=== PATIENT | male | born 1955 | race Caucasian/White ===

== ENCOUNTER → 2017-01-12 | Outpatient (CLI) | payer BC ==
--- NOTE | 2017-01-12 21:20 | MR ---
EXAMINATION TYPE: MR shoulder RT wo con DATE OF EXAM: 01/12/2017 COMPARISON: NONE HISTORY: Rt shoulder pain x 3 mos, no trauma TECHNIQUE: Multiplanar, multisequence imaging of the right shoulder is performed without contrast. FINDINGS: Rotator Cuff: There is abnormal signal throughout the infraspinatus and supraspinatus tendons compati ble with tendinosis. Partial tear involving the posterior fibers of the insertion of the infraspinatu s tendon seen with no retraction. There is intrasubstance signal near the musculotendinous junction of the supraspinatus tendon as well as involving the anterior fibers suggestive of partial tear. Acromioclavicular Joint: Severe arthropathy of the AC joint with impingement of the rotator cuff. Glenohumeral Joint: Glenohumeral joint is maintained. Inferior glenohumeral ligament is intact. Labrum: The labrum appears grossly intact given limitation of non-arthrogram study. Biceps Tendon: The long head of biceps is in normal location within bicipital groove. There is [place] of the biceps tendon in the intracapsular portion. Bone marrow signal: No focal abnormal marrow signal is appreciated. Other: No additional significant abnormality is appreciated. IMPRESSION: 1. Severe AC joint arthropathy with impingement, tendinopathy and partial tear of the distal margin o f the supraspinatus and infraspinatus tendons with no retraction. 2. Bicipital tendinosis involving the intracapsular portion of the tendon.
== END | disposition home or self-care (01) ==
LOC: RADMRIMAIN 20:12
PROVIDERS: ATTEND Orthopaedic Surgery
DX: S46.811A Strain of other muscles, fascia and tendons at shoulder and upper arm level, right arm, initial encounter (principal); M12.811 Other specific arthropathies, not elsewhere classified, right shoulder; M75.81 Other shoulder lesions, right shoulder

== ENCOUNTER → 2017-04-16 | Outpatient (CLI) | payer BC ==
--- NOTE | 2017-04-16 16:56 | PN ---
PROGRESS NOTE DATE OF SERVICE: 04/16/2017 61-year-old gentleman has been followed in the Sleep Center for treatment of obstructive sleep apnea-hypopnea syndrome. The patient continued to use his CPAP unit successfully without any problem every night, feels well with the machine. [place] Sleepiness Scale is 9. I checked his CPAP unit, range of the pressure 4-20 with average pressure 9.4, 20 L/minute which is acceptable. Apnea-hypopnea index readin.6 per hour which is totally perfect. Usage is 30 out of 30 nights for more than 4 hours. Average usage is 8.6 hours, which is 100% great compliance. MEDICATION: Atorvastatin, metformin, Glimepiride, metoprolol, enalapril, different vitamins, aspirin, melatonin 5 mg. PHYSICAL EXAM: Patient in no distress. BP 117/78, HR 58, RR 16, 5 foot and 9, weight 241, BMI 35.5, temp 96.9, oxygen saturation room air 95% on room air. Moderately low position of soft palate. Neck Supple, no JVD. Thyroid is not palpable. LUNGS Clear to percussion and to auscultation. Good air exchange. No wheezing or rhonchi. HEART S1, S2 regular. No murmurs, gallops, or rubs. ABDOMEN: Obese. Soft and nontender. Bowel sounds are present. No organomegaly appreciated. EXTREMITIES No clubbing or cyanosis. 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 Cranial nerves 2 to 7 intact. There is no fasciculation or atrophy. noted. No focal deficits observed. IMPRESSION: 1. Obstructive sleep apnea-hypopnea syndrome. Patient demonstrated 100% compliance with treatment benefitting from treatment, normalization of breathing while on CPAP. 2. Obesity, patient increased his weight on 5 pounds since previous visit. 3. Hypertension. 4. Diabetes. 5. Hyperlipidemia. 6. Coronary artery disease, status post three stent insertion. 7. Status post surgical treatment of rotator cuff. PLAN: 1. Patient will continue to use his CPAP equipment every night for the whole night. 2. Losing weight. 3. Sleep hygiene and regular time in bed for at least 7.5 hours. 4. No driving if feeling sleepiness. 5. Prescription for all necessary CPAP supplies including mask, tube and filters. The patient using a Perez FX nasal pillows. 6. Follow up visit in 1 year or earlier if patient has any problems. Thank you very much for allowing me to participate in the management of your patient. Sincerely, Jeff Mendoza MD, PhD, FAASM Diplomat of [place] [employer] [place] [employer] Motor Vehicle Inspector of [facility] [place] MMPRUDENCE / CESAR: [id number] /
== END | disposition home or self-care (01) ==
LOC: SLEEP 15:35
PROVIDERS: ATTEND Internal Medicine
DX: G47.33 Obstructive sleep apnea (adult) (pediatric) (principal); E66.9 Obesity, unspecified; I10 Essential (primary) hypertension; E11.9 Type 2 diabetes mellitus without complications; E78.5 Hyperlipidemia, unspecified; I25.10 Atherosclerotic heart disease of native coronary artery without angina pectoris; Z98.890 Other specified postprocedural states; Z79.899 Other long term (current) drug therapy; Z99.89 Dependence on other enabling machines and devices

== ENCOUNTER → 2020-09-26 | Outpatient (CLI) | payer MEDICARE ==
--- NOTE | 2020-09-27 10:15 | CONS ---
CONSULTATION A 65-year-old gentleman has been re-evaluated in Sleep Center for obstructive sleep apnea-hypopnea syndrome. Last time I saw patient more than 3 years ago. HISTORY OF PRESENT ILLNESS/SLEEP WAKE EVALUATION: The patient has history of obstructive sleep apnea for many years. Last titration done in 2013. The patient continues to use his CPAP equipment every night for the whole night. His sleep schedule from 11:30 midnight until 8:39 a.m. No problems with falling asleep although he watches TV in bedroom. He usually sleeps on the back position. No snoring with CPAP. With a CPAP he still may wake up 2 times with nocturia. No any abnormal movements during the sleep. During the day, patient may take nap around 3:30 pm. Sometimes feels tiredness. [place] Sleepiness Scale is 9. I checked the patient's CPAP unit. Range of the pressure 4-20, average pressure 9.4 cm of water. Usage is every night and 29/30 nights for more than 4 hours, average 8.7 hours per night. Leak is 25 L/minute, which is borderline. Apnea-hypopnea index is 0.8 which is outside of the normal. PAST MEDICAL HISTORY: Positive for coronary artery disease, hypertension, diabetes mellitus, hyperlipidemia. PAST SURGICAL HISTORY: Stent insertion to coronary arteries. Rotator cuff surgery on the left side. MEDICATIONS: 1. Entresto. 2. Plavix. 3. Atorvastatin 40 mg once a day. 4. Metoprolol 25 mg once a day. 5. Metformin 1000 mg twice a day. SOCIAL HISTORY: Positive for smoking for about 20 years, 1 pack a day, quit 9 years ago. Alcohol consumption significant in the past, quit 9 years ago. FAMILY HISTORY: Positive for breast CA, melanoma by his mother. REVIEW OF SYSTEMS: No chest pains. No shortness of breath. No headaches. Occasional awakenings from sleep. PHYSICAL EXAMINATION: GENERAL: gentleman without distress. BP 120/77, HR 67, RR 15, height 5 feet 9 inches, 204.4 pounds with a mass index 30.1, neck 18-1/3 inches in circumference. HEENT: Oropharynx: Moderately low position of soft palate. NECK: Supple, no JVD. Thyroid is not palpable. LUNGS: Clear to percussion and to auscultation. Good air exchange. No wheezing or rhonchi. HEART: S1, S2 regular. No murmurs, gallops, or rubs. ABDOMEN: Soft and nontender. Bowel sounds are present. No organomegaly appreciated. EXTREMITIES: No clubbing or cyanosis. 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 Cranial nerves 2 to 7 intact. There is no fasciculation or atrophy. noted. No focal deficits observed. IMPRESSION: Obstructive sleep apnea-hypopnea syndrome. IMPRESSION: 1. Obstructive sleep apnea-hypopnea syndrome. Patient demonstrated practically 100% compliance with treatment benefitting from treatment, normal respiration on CPAP according to reading from the CPAP. 2. Mild obesity, body mass index 30.1. 3. Hypertension. 4. Coronary artery disease, status post several stent insertions. 5. Diabetes mellitus. 6. Hyperlipidemia. 7. Status post rotator cuff surgery on the left side. PLAN: 1. Prescription for necessary CPAP supplies including mask, tube filters, patient using the nasal pillow mask and heated tubes. 2. Continue using CPAP equipment every night for the whole night. 3. Sleep hygiene with regular time in bed for at least 7.5 to 8 hours. 4. Precautions related to driving. No driving if feeling sleepiness. 5. Watching weight. 6. Followup visit in 6 months or earlier if patient has any problems. Thank you very much for allowing me to participate in management of your patient. MMODL / IJN: [id number] /
== END | disposition home or self-care (01) ==
LOC: SLEEP 13:46
PROVIDERS: ATTEND Internal Medicine
DX: G47.33 Obstructive sleep apnea (adult) (pediatric) (principal); E66.01 Morbid (severe) obesity due to excess calories; I10 Essential (primary) hypertension; I25.10 Atherosclerotic heart disease of native coronary artery without angina pectoris; E11.9 Type 2 diabetes mellitus without complications; E78.5 Hyperlipidemia, unspecified; Z47.31 Aftercare following explantation of shoulder joint prosthesis; Z68.30 Body mass index [BMI] 30.0-30.9, adult
CPT/HCPCS: 99202

== ENCOUNTER → 2020-11-01 | Outpatient (CLI) | payer MEDICARE ==
[2020-11-01 12:03] LABS: Basophils # (A) 0.06 X 10*3/uL (0.00-0.10); Eosinophils # (A) 0.13 X 10*3/uL (0.04-0.35); Eosinophils % (A) 2.3 %; HGB 14.7 g/dL (13.0-17.0); Lymphocytes # (A) 1.84 X 10*3/uL (0.90-5.00); MCH 30.8 pg (27.0-32.0); MCHC 33.4 g/dL (32.0-37.0); MCV 92.2 fL (80.0-97.0); Mean Platelet Volume 10.4 fL (9.5-12.2); Monocytes # (A) 0.49 X 10*3/uL (0.20-1.00); Monocytes % (A) 8.5 %; Neutrophils # (A) 3.22 X 10*3/uL (1.80-7.70); Platelet Count 182 X 10*3/uL (140-440); RBC 4.77 X 10*6/uL (4.40-5.60); RDW 12.4 % (11.5-14.5); WBC 5.75 X 10*3/uL (4.50-10.00)
[2020-11-01 13:59] LABS: African American GFR (CKD) 114.8 (60.0-200.0); Albumin 4.5 g/dL (3.80-4.90); Albumin/Globulin Ratio 1.73 (1.60-3.17); Anion Gap 8.8 mmol/L (4.00-12.00); Calcium 9.1 mg/dL (8.7-10.3); Carbon Dioxide 24.2 mmol/L (21.6-31.8); Chol/HDL Ratio 3.69; Globulin 2.6 g/dL (1.6-3.3); LDL Cholesterol,Calculated 63.6 mg/dL (0.0-131.0); Total Bilirubin 0.9 mg/dL (0.2-1.2); Total Protein 7.1 g/dL (6.2-8.2); VLDL Calculation 33.4 mg/dL (5.00-40.00)
[2020-11-01 16:07] LABS: Hemoglobin A1C 5.7 % (4.0-6.0)
== END | disposition home or self-care (01) ==
LOC: LABWHC1 08:23
PROVIDERS: ATTEND Family Medicine
DX: E04.2 Nontoxic multinodular goiter (principal); E03.8 Other specified hypothyroidism
CPT/HCPCS: 36415; 80053; 80061; 83036; 85025

== ENCOUNTER → 2022-10-16 | Outpatient (CLI) | payer MEDICARE ==
--- NOTE | 2022-10-16 17:18 | P.PN ---
Subjective DATE: 10/16/2022 FOLLOW UP VISIT. Patient with obstructive sleep apnea hypopnea syndrome return to sleep center for follow-up visit. Information from previous visit have been reviewed. Patient is using PAP equipment every night for the whole night, getting PAP supplies in time. The patient does not have significant problems with the mask, PAP unit and humidification. [place] sleepiness scale is 10, which is borderline. I checked information from PAP unit. PAP unit pressure 4-20, average 10.4 cm H2O. Usage is 100 % for more then 4 hours, average 8.8 hours per night. Leak is 25 l/m, which is in acceptable range. Apnea Hypopnea Index is 0.7, which is normal. MEDICATIONS:1. Metoprolol 25 mg once a day 2. Atorvastatin 40 mg once a day 3. Metformin 1000 mg twice a day 4. Clopidogrel 75 mg once a day 5. Entresto 6. [] 7. [] 8. [] During physical exam: GENERAL: A pleasant patient without any distress. VITAL SIGNS: BP 111/73, HR 62, RR 16 , weight 199.2, temperature 97.9, oxygen saturation at room air 95 % . HEENT: PERRLA, EOMI.low position of soft palate, Mallapati 3 . NECK: Supple. No JVD. LUNGS: Clear to percussion and to auscultation. Good air exchange. No wheezing or rhonchi. HEART: S1, S2 regular. ABDOMEN: Soft and nontender.[] EXTREMITIES: No clubbing or cyanosis. 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 No focal deficit. Impressions: 1. Obstructive sleep apnea-hypopnea syndrome. Patient demonstrated great compliance with treatment, benefiting from treatment. 2. Hypertension. 3. Coronary artery disease, status post several stent insertions. 4. Diabetes mellitus. 5. Hyperlipidemia. 6. Status post rotator cuff surgery in the left side. Plan: 1. Continue using PAP equipment every night for the whole night. 2. To change air filter at least 1-2 times per month. 3. PAP unit should stay lower then position of the head. 4. Advised patient to remove all remaining water from humidifier canister daily and make it dry after each usage. Refill canister with fresh distilled water before each usage. 5. Sleep hygiene with regular time in bed for at least 8 hours. 6. Precautions related to driving. No driving if feel any sleepiness. 7. I will maintain prescription for PAP supplies including mask, tube, filters. 8. Follow up visit in 6 months or earlier if patient has any problems. 9. Watching weight. Thank you very much for allowing me to participate in the management of your patient. Jeff Mendoza MD, PhD, FAASM. Diplomat of [place] [employer] Medicine, Sleep Medicine Board by [place] [employer] Medicine Music Sound Light Technician of [facility] [place]
== END ==
LOC: SLEEP 15:54
PROVIDERS: ATTEND Internal Medicine
DX: G47.33 Obstructive sleep apnea (adult) (pediatric) (principal); E11.9 Type 2 diabetes mellitus without complications; E78.5 Hyperlipidemia, unspecified; I10 Essential (primary) hypertension; I25.10 Atherosclerotic heart disease of native coronary artery without angina pectoris; Z79.02 Long term (current) use of antithrombotics/antiplatelets; Z79.84 Long term (current) use of oral hypoglycemic drugs; Z79.899 Other long term (current) drug therapy; Z99.89 Dependence on other enabling machines and devices; Z98.890 Other specified postprocedural states
CPT/HCPCS: 99212

== ENCOUNTER → 2023-02-25 | Outpatient (CLI) | payer MEDICARE ==
--- NOTE | 2023-02-25 13:48 | P.PN ---
Subjective DATE: 02/25/2023 FOLLOW UP VISIT. Patient with obstructive sleep apnea hypopnea syndrome return to sleep center for follow-up visit. Information from previous visit have been reviewed. Patient is using PAP equipment every night for the whole night, getting PAP supplies in time. The patient does not have significant problems with the mask, PAP unit and humidification. [place] sleepiness scale is 8, which is normal. I checked information from PAP unit. PAP unit pressure 4-20, average 10.6 cm H2O. Usage is 100 % for more then 4 hours, average 8.9 hours per night. Leak is 29 l/m, which is in acceptable range. Apnea Hypopnea Index is 0.9, which is normal. MEDICATIONS:1. Metoprolol 25 mg 2 tablets in the morning 2. Entresto 3. Clopidogrel 75 mg once a day 4. Atorvastatin 40 mg once a day During physical exam: GENERAL: A pleasant patient without any distress. VITAL SIGNS: BP 132/76, HR 75, RR 18 , weight 208.0, temperature 98.0, oxygen saturation at room air 95 % . HEENT: PERRLA, EOMI.low position of soft palate, Mallapati 3 . NECK: Supple. No JVD. LUNGS: Clear to percussion and to auscultation. Good air exchange. No wheezing or rhonchi. HEART: S1, S2 regular. ABDOMEN: Soft and nontender.[] EXTREMITIES: No clubbing or cyanosis. MOVEMAN: Awake, alert, and oriented x3. No focal deficit. Impressions: 1. Obstructive sleep apnea-hypopnea syndrome. Patient demonstrated great compliance with treatment, benefiting from treatment. 2. Hypertension. 3. Diabetes mellitus. 4. Coronary artery disease, status post several stent insertions. 5. Hyperlipidemia. 6. Status post left side rotator cuff surgery. I changed range of the pressure up to 415 centimeters of water Plan: 1. Continue using PAP equipment every night for the whole night. 2. To change air filter at least 1-2 times per month. 3. PAP unit should stay lower then position of the head. 4. Advised patient to remove all remaining water from humidifier canister daily and make it dry after each usage. Refill canister with fresh distilled water before each usage. 5. Sleep hygiene with regular time in bed for at least 8 hours. 6. Precautions related to driving. No driving if feel any sleepiness. 7. I will maintain prescription for PAP supplies including mask, tube, filters. 8. Watching weight. 9. Follow up visit in 6 months or earlier if patient has any problems. Thank you very much for allowing me to participate in the management of your patient. Jeff Mendoza MD, PhD, FAASM. Diplomat of [place] [employer], Sleep Medicine Board by [place] [employer] Medicine Rubber Off of [facility] [place]
== END ==
LOC: 3 N SLEEP 13:26
PROVIDERS: ATTEND Internal Medicine
DX: G47.33 Obstructive sleep apnea (adult) (pediatric) (principal); I10 Essential (primary) hypertension; E11.9 Type 2 diabetes mellitus without complications; I25.10 Atherosclerotic heart disease of native coronary artery without angina pectoris; E78.5 Hyperlipidemia, unspecified; Z98.890 Other specified postprocedural states; Z79.02 Long term (current) use of antithrombotics/antiplatelets; Z79.899 Other long term (current) drug therapy; Z99.89 Dependence on other enabling machines and devices
CPT/HCPCS: 99212

== ENCOUNTER → 2023-10-01 | Outpatient (CLI) | payer MEDICARE ==
[2023-10-01 11:17] VITALS: BP 124/73; PULSE 63; RESP 16; TEMP 97.9
--- NOTE | 2023-10-01 11:37 | P.PROGSL ---
Subjective DATE: 10/01/2023 FOLLOW UP VISIT. Patient with obstructive sleep apnea hypopnea syndrome return to sleep center for follow-up visit. Information from previous visit have been reviewed. Patient is using PAP equipment every night for the whole night, getting PAP supplies in time. CPAP unit stops to be noisy at the present time according to patient. [place] sleepiness scale is 8. I checked information from PAP unit. Motor life expectancy exceeded. PAP unit pressure 4-15, average 8.6 cm H2O. Usage is 100% for more then 4 hours, average 8.8 hours per night. Leak is 22 l/m, which is in acceptable range. Apnea Hypopnea Index is 0.6, which is normal. MEDICATIONS:1. Clopidogrel 75 mg once a day 2. Atorvastatin 40 mg once a day 3. Metformin twice a day 4. Metoprolol 25 mg 2 tablets in the morning 5. Invokana once a day 6. Entresto twice a day During physical exam: GENERAL: A pleasant patient without any distress. VITAL SIGNS: Please see below, weight 206 pounds, BMI 29.9. HEENT: PERRLA, EOMI.low position of soft palate, Mallapati 3 . NECK: Supple. No JVD. LUNGS: Clear to percussion and to auscultation. Good air exchange. No wheezing or rhonchi. HEART: S1, S2 regular. ABDOMEN: Soft and nontender.[] EXTREMITIES: No clubbing or cyanosis. 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 No focal deficit. Impressions: 1. Obstructive sleep apnea-hypopnea syndrome. Patient demonstrated great compliance with treatment, benefiting from treatment. CPAP unit is old, noisy, motor life expectancy was exceeded. 2. Hypertension. 3. Diabetes mellitus. 4. Coronary artery disease, status post stents insertion. 5. Hyperlipidemia. 6. Status post rotator cuff surgery on the left side. Plan: 1. Continue using PAP equipment every night for the whole night. Prescription to replace CPAP unit. 2. To change air filter at least 1-2 times per month. 3. PAP unit should stay lower then position of the head. 4. Advised patient to remove all remaining water from humidifier canister daily and make it dry after each usage. Refill canister with fresh distilled water before each usage. 5. Sleep hygiene with regular time in bed for at least 8 hours. 6. Precautions related to driving. No driving if feel any sleepiness. 7. I will maintain prescription for PAP supplies including mask, tube, filters. 8. Follow up visit in 1-3 months after patient will get new CPAP unit. 9. Watching weight. Thank you very much for allowing me to participate in the management of your patient. Jeff Mendoza MD, PhD, FAASM. Diplomat of [place] [employer] Medicine, Sleep Medicine Board by [place] [employer] Folder Hand of [facility] [place] Objective - Vital Signs Vital Signs: Vital Signs Temp 97.9 F 10/01/23 11:14 Pulse 63 10/01/23 11:14 Resp 16 10/01/23 11:14 BP 124/73 10/01/23 11:14 Pulse Ox 97 10/01/23 11:14 FiO2 Intake & Output 09/30/23 10/01/23 10/01/23 18:59 06:59 18:59 Weight 93.44 kg
== END ==
LOC: 3 N SLEEP 10:58
PROVIDERS: ATTEND Internal Medicine
DX: G47.33 Obstructive sleep apnea (adult) (pediatric) (principal); I10 Essential (primary) hypertension; E11.9 Type 2 diabetes mellitus without complications; I25.10 Atherosclerotic heart disease of native coronary artery without angina pectoris; E78.5 Hyperlipidemia, unspecified; Z95.5 Presence of coronary angioplasty implant and graft; Z98.890 Other specified postprocedural states; Z99.89 Dependence on other enabling machines and devices; Z79.899 Other long term (current) drug therapy; Z79.84 Long term (current) use of oral hypoglycemic drugs
CPT/HCPCS: 99212

== ENCOUNTER → 2024-08-25 | Outpatient (CLI) | payer MEDICARE ==
[2024-08-25 10:43] VITALS: BP 122/80; PULSE 61; RESP 12; TEMP 97.9
--- NOTE | 2024-08-25 11:03 | P.PROGSL ---
Subjective DATE: 08/25/2024 FOLLOW UP VISIT. Patient with obstructive sleep apnea hypopnea syndrome return to sleep center for follow-up visit. Information from previous visit have been reviewed. Patient is using PAP equipment every night for the whole night, getting PAP supplies in time. The patient does not have significant problems with the mask, PAP unit and humidification. [place] sleepiness scale is 8, which is in normal range. I checked information from PAP unit. Motor life expectancy was exceeded. PAP unit pressure 4-15, average 9.3 cm H2O. Usage is 100% for more then 4 hours, average 8.6 hours per night. Leak is 28 l/m, which is in acceptable range. Apnea Hypopnea Index is 0.4, which is normal. MEDICATIONS have been reviewed, please see below. During physical exam: GENERAL: A pleasant patient without any distress. VITAL SIGNS: Please see below, weight is 209 lbs. HEENT: PERRLA, EOMI.low position of soft palate, Mallapati 3. NECK: Supple. No JVD. LUNGS: Clear to percussion and to auscultation. Good air exchange. No wheezing or rhonchi. HEART: S1, S2 regular. ABDOMEN: Soft and nontender.[] EXTREMITIES: No clubbing or cyanosis. 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 No focal deficit. Impressions: 1. Obstructive sleep apnea-hypopnea syndrome. Patient demonstrated great compliance with treatment, benefiting from treatment. 2. Very mild obesity, BMI 31.3, patient increased weight on 3 pounds comparing with previous visit. 3. Hypertension. 4. Diabetes mellitus. 5. Coronary artery disease, status post stent insertion. 6. Status post rotator cuff surgery on the left side. 7. Hyperlipidemia. Plan: 1. Continue using PAP equipment every night for the whole night. 2. Sleep hygiene with regular time in bed for at least 7.5-8 hours 3. PAP unit should stay lower then position of the head. 4. Advised patient to remove all remaining water from humidifier canister daily and make it dry after each usage. Refill canister with fresh distilled water before each usage. 5. Watching weight. 6. Precautions related to driving. No driving if feel any sleepiness. 7. I will maintain prescription for PAP supplies including mask, tube, filters. 8. Follow up visit in 8 months or earlier if patient has any problems. Thank you very much for allowing me to participate in the management of your patient. Jeff Mendoza MD, PhD, FAASM. Diplomat of [place] [employer], Sleep Medicine Board by [place] [employer] Field Applications Specialist of [facility] [place] Objective - Vital Signs Vital Signs: Vital Signs Temp 97.9 F 08/25/24 10:42 Pulse 61 08/25/24 10:42 Resp 12 08/25/24 10:42 BP 122/80 08/25/24 10:42 Pulse Ox 96 08/25/24 10:42 FiO2 Intake & Output 08/24/24 08/25/24 08/25/24 18:59 06:59 18:59 Weight 94.801 kg Home Medications: Home Medications Medication Instructions Recorded Confirmed Type Atorvastatin [Lipitor] 40 mg PO DAILY 08/25/24 08/25/24 History Clopidogrel [Plavix] 75 mg PO DAILY 08/25/24 08/25/24 History Empagliflozin [Jardiance] 25 mg PO DAILY 08/25/24 08/25/24 History Metoprolol Tartrate [Lopressor] 25 mg PO BID 08/25/24 08/25/24 History Sacubitril/Valsartan [Entresto 24 1 each PO BID 08/25/24 08/25/24 History mg-26 mg Tablet] metFORMIN HCL 1,000 mg PO BID 08/25/24 08/25/24 History
== END ==
LOC: 3 N SLEEP 10:20
PROVIDERS: ATTEND Internal Medicine
DX: G47.33 Obstructive sleep apnea (adult) (pediatric) (principal); E66.9 Obesity, unspecified; I10 Essential (primary) hypertension; E11.9 Type 2 diabetes mellitus without complications; I25.10 Atherosclerotic heart disease of native coronary artery without angina pectoris; E78.5 Hyperlipidemia, unspecified; Z95.5 Presence of coronary angioplasty implant and graft; Z98.890 Other specified postprocedural states; Z68.31 Body mass index [BMI] 31.0-31.9, adult; Z99.89 Dependence on other enabling machines and devices
CPT/HCPCS: 99212